=== PATIENT | female | born 1980 | race Caucasian/White ===

== ENCOUNTER 2018-07-30 08:38 | Emergency (ER) | payer OTHER ==
[2018-07-30 09:02] VITALS: BP 116/41
--- NOTE | 2018-07-30 09:52 | UC ---
General HPI - HPI Summary HPI Summary: Here with Mother - from [place] but understands [place] ok. States she was trying to swing on the monkey bars with her children yesterday and fell and landed on her right ankle pretty hard. Concerned about fracture. Able to walk but does have some pain. MEds: reviewed - History of Current Complaint Chief Complaint: UCLowerExtremity Stated Complaint: ANKLE INJURY Time Seen by Provider: 07/30/18 09:05 Hx Last Menstrual Period: 07/16/18 Pain Intensity: 5 - Allergy/Home Medications Allergies/Adverse Reactions: Allergies Allergy/AdvReac Type Severity Reaction Status Date / Time No Known Allergies Allergy Verified 07/30/18 08:54 Home Medications: Home Medications Trolamine Salicyl. 10% CREAM* [Myoflex 10% CREAM*] 1 applic TOPICAL DAILY [History Confirmed 07/30/18] PMH/Surg Hx/FS Hx/Imm Hx Previously Healthy: Yes - Surgical History Surgical History: Yes Surgery Procedure, Year, and Place: appendectomy - Social History Alcohol Use: None Substance Use Type: None Smoking Status (MU): Never Smoked Tobacco Review of Systems All Other Systems Reviewed And Are Negative: Yes Motor: Positive: Decreased ROM Physical Exam Triage Information Reviewed: Yes Vital Signs: Initial Vital Signs Temp 99 F 07/30/18 08:56 Pulse 69 07/30/18 08:56 Resp 16 07/30/18 08:56 BP 116/41 07/30/18 08:56 Pulse Ox 100 07/30/18 08:56 Vital Signs Reviewed: Yes Musculoskeletal: Positive: Other: - right ankle - edema over lateral malleolus, tenderness over lateral malleolus and medial malleolus, ROM but limited due to pain. Good pulses and cap refill Diagnostics - Radiology right ankle Radiology Interpretation Completed By: Radiologist Summary of Radiographic Findings: No acute osseous injury Course/Dx - Course Course Of Treatment: This is 38 yr old with right ankle injury xray negative Plan Recommend rest, ice and elevate ankle Can use ibuprofen 600 mg every 4-6 hours as needed for pain or swelling. Take with food If symptoms persist or worsen, recommend follow up with your primary care provider or return to urgent care Continue gentle movement with ankle and increase weight and activity as tolerated - Diagnoses Provider Diagnosis: Right ankle sprain Discharge - Sign-Out/Discharge Documenting (check all that apply): Patient Departure All imaging exams completed and their final reports reviewed: Yes - Discharge Plan Condition: Good Disposition: HOME Patient Education Materials: Ankle Sprain (ED) Referrals: No Primary Care Phys,NOPCP [Primary Care Provider] - Additional Instructions: Recommend rest, ice and elevate ankle Can use ibuprofen 600 mg every 4-6 hours as needed for pain or swelling. Take with food If symptoms persist or worsen, recommend follow up with your primary care provider or return to urgent care Continue gentle movement with ankle and increase weight and activity as tolerated - Billing Disposition and Condition Condition: GOOD Disposition: Home
== END 2018-07-30 10:00 | disposition home or self-care (01) ==
LOC: UCEAST 08:38
DX: S93.491A Sprain of other ligament of right ankle, initial encounter (principal); W17.89XA Other fall from one level to another, initial encounter; Y93.89 Activity, other specified; Y92.9 Unspecified place or not applicable
CPT/HCPCS: 99202; G0463